=== PATIENT | male | born 1985 | race Caucasian/White ===

== ENCOUNTER 2016-04-26 21:41 | Emergency (ER) | payer SELFPAY ==
[~2016-04-26] VITALS: Ht 172.7 cm; Wt 63.0 kg
[~2016-04-26 21:41] MED LIST: IBUP800T23 PO; ROBA750T PO
[2016-04-26 22:15] VITALS: BP 124/86; PULSE 84; RESP 16; TEMP 99.9; O2SAT 97
== END 2016-04-26 23:13 | disposition left against medical advice (07) ==
LOC: PHED 21:41
DX: R22.42 Localized swelling, mass and lump, left lower limb (principal); Z53.21 Procedure and treatment not carried out due to patient leaving prior to being seen by health care provider
CPT/HCPCS: 99281